=== PATIENT | female | born 1945 | race Caucasian/White ===

== ENCOUNTER 2017-05-07 00:57 | Observation (INO) | payer MEDICARE, BC ==
[2017-05-07] MEDS ORDERED: ceFAZolin 2 GM PREMIX (*) 2 GM/50 ML BAG IVPB ONE ×2 (01:50→13:01)
[2017-05-07] MEDS ORDERED: Metoprolol Tartrate IV* 1 MG/ML 5 ML VIAL IV ONE (03:02)
[2017-05-07 03:10] LABS: ABS Basophils 0.1 10^3/ul (0-0.2); ABS Eosinophils 0.1 10^3/ul (0-0.6); ABS Lymphocytes 1.9 10^3/ul (1.0-4.8); ABS Monocytes 0.5 10^3/ul (0-0.8); ABS Neutrophils 10.1 10^3/ul (1.5-7.7); ABS Nucleated RBC 0.01 10^3/ul; Eosinophil % 0.5 % (0-6); Hematocrit 45 % (35-47); Hemoglobin 15.2 g/dl (12.0-16.0); Lymphocyte % 15.3 % (25-47); Mean Corpuscular HGB Conc 34 g/dl (31-36); Mean Corpuscular Hemoglobin 33 pg (27-31); Mean Corpuscular Volume 99 fL (80-97); Mean Platelet Volume 8 um3 (7.4-10.4); Nucleated Red Blood Cells % 0; Platelet Count 200 10^3/ul (150-450); Red Blood Count 4.56 10^6/ul (4.0-5.4); Red Cell Distribution Width 14 % (10.5-15); White Blood Count 12.7 10^3/ul (3.5-10.8)
[2017-05-07 03:16] LABS: INR 0.96 (0.89-1.11)
[2017-05-07 03:24] LABS: EGFR Non-African American 61.1 (>60)
[2017-05-07] MEDS ORDERED: Senna TAB PO PRN (04:29)
[2017-05-07] MEDS ORDERED: Ondansetron INJ* 2 MG/ML VIAL IV PRN (04:29)
[2017-05-07] MEDS ORDERED: Docusate CAP* 100 MG PO PRN (04:29)
[2017-05-07] MEDS ORDERED: Morphine INJ* 2 MG/ML 1 ML SYRINGE (TWO MG - NEW SYRINGE VERSION) IV PRN (04:29)
[2017-05-07] MEDS ORDERED: Magnesium Sulfate 2 GM IV* 2 GM/50 ML BAG IVPB ONE (04:36)
[2017-05-07] MEDS ORDERED: Thiamine IV* 100 MG/ML 2 ML VIAL IM ONE (04:37)
[2017-05-07] MEDS ORDERED: Metoprolol Tartrate IV* 1 MG/ML 5 ML VIAL IV PRN (04:49)
--- NOTE | 2017-05-07 07:55 | ED ---
[place], scribed for Jonathon Phillip MD on 05/07/17 at 0142 . Adult Trauma - HPI Summary HPI Summary: This patient is a 71 year old F BIBA to [facility] s/p fall since [employer]. Patient drank a bottle of wine and fell down her stairs, cutting her arm open. Patient denies neck pain, head pain, abd pain, cp, sob, and LOC. Patient is not on blood thinners. - History of Current Complaint Chief Complaint: EDGeneral Stated Complaint: RT ARM LAC Time Seen by Provider: 05/07/17 01:22 Hx Obtained From: Patient Mechanism of Injury: Fall Onset/Duration: Still Present Pain Intensity: 0 Pain Scale Used: 0-10 Numeric Location: Extremities - right arm Associated Signs & Symptoms: Positive: Negative - neck pain, head pain, abd pain , cp, sob, and LOC - Allergy/Home Medications Allergies/Adverse Reactions: Allergies Allergy/AdvReac Type Severity Reaction Status Date / Time No Known Allergies Allergy Verified 05/07/17 01:26 Home Medications: Home Medications Atenolol TAB* 50 mg PO DAILY 05/07/17 [History Confirmed 05/07/17] Pravastatin Sodium 80 mg PO DAILY 05/07/17 [History Confirmed 05/07/17] PMH/Surg Hx/FS Hx/Imm Hx Previously Healthy: No Endocrine/Hematology History: Denies: Hx Diabetes Cardiovascular History: Reports: Hx Hypertension - Immunization History Date of Influenza Vaccine: 03/2017 Infectious Disease History: Unable to Obtain/Confirm Infectious Disease History: Denies: Traveled Outside the [place] in Last 30 Days - Family History Known Family History: Negative: Diabetes - Social History Alcohol Use: Daily Alcohol Amount: ETOH intoxication this Substance Use Type: Reports: None Smoking Status (MU): Never Smoked Tobacco Review of Systems Negative: Chest Pain Negative: Shortness Of Breath Musculoskeletal: Negative - neck and head pain Positive: Other - gash on right forearm Neurological: Negative - LOC All Other Systems Reviewed And Are Negative: Yes Physical Exam - Summary Physical Exam Summary: Appearance: Well appearing, no pain distress, Dried blood on hands and legs Skin: warm, dry, reflects adequate perfusion Head/face: normal, No outward evidence of trauma to scalp, No dental injury Eyes: EOMI, YASMANI ENT: normal Neck: supple, non-tender Respiratory: CTA, breath sounds present Cardiovascular: RRR, pulses symmetrical, no murmur Abdomen: non-tender, soft, No ecchymosis on back Bowel: present Musculoskeletal: normal, strength/ROM intact Extremities: 4 cm circular hematoma on her right lateral lower leg, Ecchymosis without hematoma left medial lower leg, No hip tenderness through full rom, Upper extremities move without tenderness, Full extension of digits and wrist, Laceration on right forearm widest is 5cm x 10cm x to exposed muscle Neuro: sensory motor intact, A&Ox3 Neurologically normal, speech clear, cranial nerves intact, mentation intact Triage Information Reviewed: Yes Vital Signs On Initial Exam: Initial Vitals Temp Pulse Resp BP Pulse Ox 97.3 F 94 16 126/66 97 05/07/17 01:05 05/07/17 01:05 05/07/17 01:05 05/07/17 01:05 05/07/17 01:05 Vital Signs Reviewed: Yes Procedures - Laceration/Wound Repair 1 Location: upper extremity - right forearm Length, Depth and Shape: 5cm x 10cm x to muscle Laceration/Wound Explored: clean, Other - Patients wound on right forearm was irrigated with 1L of pressurized saline and the wound was approximated loosely. It was then wrapped with moistened kerlix gauze and coband pressure wrapped. Diagnostics - Vital Signs Vital Signs Temp Pulse Resp BP Pulse Ox 05/07/17 01:27 96 94 05/07/17 01:26 114/69 05/07/17 01:05 97.3 F 94 16 126/66 97 - Laboratory Lab Results: Lab Results 05/07/17 05/07/17 05/07/17 Range/Units 02:50 02:50 02:50 WBC 12.7 H (3.5-10.8) 10^3/ul RBC 4.56 (4.0-5.4) 10^6/ul Hgb 15.2 (12.0-16.0) g/dl Hct 45 (35-47) % MCV 99 H (80-97) fL MCH 33 H (27-31) pg MCHC 34 (31-36) g/dl RDW 14 (10.5-15) % Plt Count 200 (150-450) 10^3/ul MPV 8 (7.4-10.4) um3 Neut % (Auto) 79.6 (38-83) % Lymph % (Auto) 15.3 L (25-47) % Campbell % (Auto) 4.1 (1-9) % Eos % (Auto) 0.5 (0-6) % Baso % (Auto) 0.5 (0-2) % Absolute Neuts (auto) 10.1 H (1.5-7.7) 10^3/ul Absolute Lymphs (auto) 1.9 (1.0-4.8) 10^3/ul Absolute Monos (auto) 0.5 (0-0.8) 10^3/ul Absolute Eos (auto) 0.1 (0-0.6) 10^3/ul Absolute Basos (auto) 0.1 (0-0.2) 10^3/ul Absolute Nucleated RBC 0.01 10^3/ul Nucleated RBC % 0 INR (Anticoag Therapy) 0.96 (0.89-1.11) Sodium 137 (133-145) mmol/L Potassium TNP Chloride 102 (101-111) mmol/L Carbon Dioxide 25 (22-32) mmol/L Anion Gap 10 (2-11) mmol/L BUN 15 (6-24) mg/dL Creatinine 0.91 (0.51-0.95) mg/dL Est GFR ( Amer) 78.6 (>60) Est GFR (Non-Af Amer) 61.1 (>60) BUN/Creatinine Ratio 16.5 (8-20) Glucose 116 H (70-100) mg/dL Calcium 9.4 (8.6-10.3) mg/dL Magnesium 1.8 L (1.9-2.7) mg/dL Total Bilirubin 0.60 (0.2-1.0) mg/dL AST TNP ALT 27 (7-52) U/L Alkaline Phosphatase 58 (34-104) U/L Troponin I (<0.04) ng/mL Total Protein 7.4 (6.4-8.9) g/dL Albumin 4.4 (3.2-5.2) g/dL Globulin 3.0 (2-4) g/dL Albumin/Globulin Ratio 1.5 (1-3) Serum Alcohol 234 H (<10) mg/dL 05/07/17 Range/Units 03:34 WBC (3.5-10.8) 10^3/ul RBC (4.0-5.4) 10^6/ul Hgb (12.0-16.0) g/dl Hct (35-47) % MCV (80-97) fL MCH (27-31) pg MCHC (31-36) g/dl RDW (10.5-15) % Plt Count (150-450) 10^3/ul MPV (7.4-10.4) um3 Neut % (Auto) (38-83) % Lymph % (Auto) (25-47) % Campbell % (Auto) (1-9) % Eos % (Auto) (0-6) % Baso % (Auto) (0-2) % Absolute Neuts (auto) (1.5-7.7) 10^3/ul Absolute Lymphs (auto) (1.0-4.8) 10^3/ul Absolute Monos (auto) (0-0.8) 10^3/ul Absolute Eos (auto) (0-0.6) 10^3/ul Absolute Basos (auto) (0-0.2) 10^3/ul Absolute Nucleated RBC 10^3/ul Nucleated RBC % INR (Anticoag Therapy) (0.89-1.11) Sodium (133-145) mmol/L Potassium 3.8 Chloride (101-111) mmol/L Carbon Dioxide (22-32) mmol/L Anion Gap (2-11) mmol/L BUN (6-24) mg/dL Creatinine (0.51-0.95) mg/dL Est GFR ( Amer) (>60) Est GFR (Non-Af Amer) (>60) BUN/Creatinine Ratio (8-20) Glucose (70-100) mg/dL Calcium (8.6-10.3) mg/dL Magnesium (1.9-2.7) mg/dL Total Bilirubin (0.2-1.0) mg/dL AST 38 ALT (7-52) U/L Alkaline Phosphatase (34-104) U/L Troponin I 0.00 (<0.04) ng/mL Total Protein (6.4-8.9) g/dL Albumin (3.2-5.2) g/dL Globulin (2-4) g/dL Albumin/Globulin Ratio (1-3) Serum Alcohol (<10) mg/dL Result Diagrams: 05/07/17 02:50 05/07/17 03:34 Lab Statement: Any lab studies that have been ordered have been reviewed, and results considered in the medical decision making process. - Radiology forearm xray Radiology Interpretation Completed By: ED Physician - soft tissue defect on mid forearm, no fracture CXR Radiology Interpretation Completed By: ED Physician - no acute disease - CT CT Head CT Interpretation Completed By: Radiologist - involutional changes with mild to moderate ventriculomegaly ED physician has reviewed this radiology report and agrees. CT C-spine CT Interpretation Completed By: Radiologist - negative for cervical spine fracture or malalignment ED physician has reviewed this radiology report and agrees. - EKG 02:44 Cardiac Rate: NL EKG Rhythm: Atrial Fibrillation - [address] Segment: Non-Specific EKG Interpretation: Normal axis, low voltage Re-Evaluation - Re-Evaluation First Eval Change: Improved - lac dressed and sobering. Lopressor for Afib Adult Trauma Course/Dx - Course Course Of Treatment: Pt with extensive injury to R forearm (partial degloving). Ortho c/s -- will take to OR. Found to have new onset afib. Rate ~100. Lopressor here. No other significant injury. No abd pain. Hematoma in leg. Admit for further, OR when able. Td is up to date. Ancef given for wound. - Diagnoses Provider Diagnoses: Multiple contusions, New onset a-fib, Alcohol intoxication, complex forearm laceration - Physician Notifications Discussed Care Of Patient With: Cris Mak Time Discussed With Above Provider: 02:12 Instructed by Provider To: Other - We discussed patient care with Dr. Mak and they recommended cleaning the wound and she will be down at 0400 to take the patient to the OR. - Critical Care Time Critical Care Time: 30-74 min - CCT is EXCLUSIVE of separately billable procedures Discharge - Discharge Plan Condition: Stable Disposition: ADMITTED TO [facility] Consult Consult: 03:07: Discussed patient care with Dr. Al, hospitalist. She agreed to admit the patient. The documentation as recorded by the [place] accurately reflects the service I personally performed and the decisions made by , Jonathon Phillip MD.
[2017-05-07] MEDS: Multivitamins/Minerals TAB PO SCH (08:00)
[2017-05-07] MEDS: Folic Acid TAB* 1 MG PO SCH (08:01)
[2017-05-07] MEDS: Thiamine TAB* 100 MG TAB PO SCH (08:01)
--- NOTE | 2017-05-07 08:12 | RAD ---
Indication: Preop chest. Comparison is made with previous exam dated November 10, 2007. 2 views of the chest including dual energy PA views demonstrate no mediastinal shift. Heart is of normal size and configuration. Lung mariano are clear. IMPRESSION: No active cardiopulmonary disease is noted.
--- NOTE | 2017-05-07 08:13 | RAD ---
Indication: Right arm injury. 2 views of the right forearm demonstrates large laceration in the soft tissues. No fracture is noted. IMPRESSION: Soft tissue defect consistent with laceration. No fracture is noted.
--- NOTE | 2017-05-07 08:23 | RAD ---
indication: Fall. + EtOH. COMPARISON: None A CT scan of the brain and c-spine was performed without intravenous contrast enhancement. Contiguous axial sections were obtained from the lung apices through the vertex. BRAIN: The ventricles, cisterns and sulci exhibit symmetrical involutional changes. There is mild periventricular and subcortical white matter hypoattenuation most consistent with chronic microvascular disease. No significant focal abnormality or mass effect is seen. The fitzpatrick-white differentiation is adequately maintained. There is no evidence for intracranial hemorrhage. No significant bony abnormality is present. The mastoid air cells are appropriately aerated. The visualized paranasal sinuses are clear. C-SPINE: Degenerative changes of the cervical spine include loss of intervertebral disc height and mild marginal osteophyte formation. Mild uncovertebral hypertrophy is seen at the mid-level and lower cervical spine on the coronal plane images. On the sagittal view images the vertebral bodies and facet joints are appropriately aligned. There is no acute fracture or dislocation. There is no hyperdense material in the cervical canal to indicate hemorrhage. The visualized musculature and soft tissues are normal. There is no gross lymphadenopathy visualized. The visualized portion of the lung apices are clear. IMPRESSION: 1. No calvarial fracture or acute intracranial hemorrhage. 2. Mild multilevel degenerative changes without acute fracture or dislocation of the cervical spine..
[2017-05-07 08:44] LABS: Urine Appearance Clear; Urine Blood Negative (Negative); Urine Color Yellow; Urine Ketones Negative (Negative); Urine Protein Negative (Negative); Urine Specific Gravity 1.011 (1.010-1.030); Urine Urobilinogen Negative (Negative)
[2017-05-07] MEDS ORDERED: Perflutren Lipid Microsphere* 3 ML VIAL ONE (09:40)
--- NOTE | 2017-05-07 10:13 | HP ---
CC: Bruce Foley; Cris Mak MD * HISTORY AND PHYSICAL: DATE OF ADMISSION: 05/07/17 TIME OF EVALUATION: 0400 PRIMARY CARE PHYSICIAN: Bruce Foley. ORTHOPEDIC SURGEON: Cris Mak MD CHIEF COMPLAINT: Fall. HISTORY OF PRESENT ILLNESS: This is a 71-year-old female with past medical history of hypertension, hyperlipidemia, who fell down a stairs and suffered a significant laceration to her right upper extremity. Patient was also noted to be in new onset atrial fibrillation. Patient states she was in her usual state of health when fell down the stairs and something caught on her arms, suffered significant injury, and EMS was called. Ortho was notified. They were going to take her to the OR this morning when they noticed that she was in atrial fibrillation in the low 100s. Patient denies ever having any issues with atrial fibrillation in the past. No palpations, no chest pain. She states she occasionally has wheezing episode with her seasonal allergies. She is not typically very physically active. She does snore at night. She denies any recent URI illness. No nausea, vomiting, diarrhea. No headache, no abdominal pain, no urinary symptoms. She does admit to drinking on average a bottle of wine a day give or take, which she also was drinking this evening as well. Otherwise, remaining review of systems negative. In the emergency room, the patient had labs, imaging. She was given Lopressor 5 mg and Keflex 2 g and referred to the hospitalist service for further evaluation. PAST MEDICAL HISTORY: 1. Hypertension. 2. Hyperlipidemia. 3. Seasonal allergies. 4. Alcohol use. MEDICATIONS: 1. Pravastatin 80 mg p.o. daily. 2. Atenolol 50 mg daily. ALLERGIES: No known drug allergies. FAMILY HISTORY: Mother at age 98. Father at age 76 related to complications from stroke. SOCIAL HISTORY: Patient lives at home with her , who is her healthcare proxy. She is a remote smoker more than 40 years ago. She states she drinks about a bottle of wine per day give or take. No illicit drug use. Code status is full code. REVIEW OF SYSTEMS: A 14-point review of systems reviewed. Pertinent positives and negatives as mentioned in the HPI, otherwise negative. PHYSICAL EXAMINATION GENERAL: In no acute distress, resting comfortably. VITAL SIGNS: Temp 97.3, pulse rate 92, respiratory rate 16, oxygen saturation 96 % on room air, blood pressure 103/62. HEENT: Head normocephalic. Pupils are equal and reactive, anicteric. Oropharynx: Mucous membranes are moist. NECK: Supple. No lymphadenopathy. RESPIRATORY: Diminished breath sounds. No wheezing, rhonchi, or rales. CARDIAC: Irregularly irregular rate and rhythm. Soft systolic murmur heard throughout. ABDOMEN: Soft, nontender, nondistended. EXTREMITIES: The patient with an Roberto Carlos wrap on the right upper extremity. +2 DPs. NEUROLOGIC: Alert and oriented x3. No focal neurologic deficits. DIAGNOSTIC STUDIES/LAB DATA: White count 12.7, hemoglobin 15.2, hematocrit 45 , platelets 200. INR is 0.96. Sodium 137, potassium is pending, chloride 102, bicarb 25, BUN 15, creatinine 0.91, glucose 116. Alcohol level is 234. Radiographic Data: EKG shows atrial fibrillation with a rate of 99. Head CT, involutional changes with [id number] ventriculomegaly. No hemorrhage or acute infarct. Chest x-ray: No acute pathology. ASSESSMENT: This is a 71-year-old female with past medical history of hypertension, hyperlipidemia with alcohol use, who fell down the stairs, noted to have significant right upper extremity injury, was also found to be in new onset atrial fibrillation. 1. Right upper extremity injury: Assessment and plan: We will keep her n.p.o. Patient has plan to go to the OR today for repair. 2. New onset atrial fibrillation: Assessment: I suspect it is chronic for her. She is asymptomatic. Her heart rate slightly elevated and she is also intoxicated. I suspect this is due to alcohol use and possibly obstructive sleep apnea. Following up on her potassium and magnesium, we will continue metoprolol as needed. We will check an echo and trend her troponins. If all that is unremarkable, patient should proceed to the OR for repair. As mentioned, she is asymptomatic. In regards to starting on anticoagulation, hesitate to do that in the setting of her drinking and her recent fall, I suspect that keeping her rate controlled with a baby aspirin is more appropriate, which should be initiated when she is out of the OR. 3. Hypertension: Blood pressures are soft, we are giving her metoprolol for rate control. 4. Hyperlipidemia: We will hold her pravastatin for now. 5. FEN: NPO with IV fluids. 6. DVT prophylaxis: Placed the patient on SCDs as she is planning to go to the OR today. 7. Code status: Full code. PATIENT TIME: Greater than 60 minutes were spent doing the history and physical , more than half the time spent in direct patient contact. [id number]/CPS #: [id number] MTDD
--- NOTE | 2017-05-07 11:01 | ECHO ---
Patient: VIKKI MILLER [facility] Rec#: [id number] : 1945 Date: 05/07/2017 Age: 71y Height: 157.5 cm / 62.0 in Weight: 79.8 kg / 175.9 lbs Sex: F BSA: 1.8 Room#: [facility] Admit Date#: 05/07/2017 Type: Inpatient Referring: Teresa Al Reading: Brando Griffin DO Research Mechanic: Ana Rosa Hankins RN RDCS CC: Bruce Foley MD Transthoracic Echocardiogram Indication: Atrial fibrillation BP: 92/61 HR: 93 Rhythm: A-Fib Findings History: HTN, HLD, ETOH use, obesity Technical Comments: The study is technically limited due to poor acoustic windows. The study is technically limited due to patient body habitus. The study is technically limited due to the patient's smoking history. Left Ventricle: The left ventricular chamber size is normal. Mild concentric left ventricular hypertrophy is observed. Global left ventricular wall motion and contractility are within normal limits. There is normal left ventricular systolic function. The estimated ejection fraction is greater than 65%. The assessment of diastolic function is non-diagnostic. Left Atrium: The left atrium is moderately dilated. Right Ventricle: The right ventricle is mildly dilated. The right ventricular global systolic function is normal. Right Atrium: The right atrium is mildly dilated. Aortic Valve: The aortic valve structure is not well visualized. The aortic valve leaflets are mildly thickened. There is no evidence of aortic regurgitation. There is no evidence of aortic stenosis. Mitral Valve: The mitral valve leaflets are mildly thickened. There is trace to mild mitral regurgitation. There is no evidence of mitral stenosis. Tricuspid Valve: The tricuspid valve leaflets are normal. There is trace to mild tricuspid regurgitation. There is evidence of borderline pulmonary hypertension. There is no tricuspid stenosis. Pulmonic Valve: The pulmonic valve structure is not well visualized. There is a trace pulmonic regurgitation. There is no pulmonic stenosis. Pericardium: There is no significant pericardial effusion. A pericardial fat pad is visualized. Aorta: There is no dilatation of the ascending aorta. The aortic arch is not well visualized. The aortic root is normal in size. Pulmonary Artery: The main pulmonary artery is not well visualized. Venous: The venous system is not well visualized. The inferior vena cava is not visualized. Contrast: Definity was used to optimize study. A total of 3 ml of diluted Definity was given IV. Conclusions Patient in atrial fibrillation at time of study. The left ventricular chamber size is normal. Mild concentric left ventricular hypertrophy is observed. There is normal left ventricular systolic function. The estimated ejection fraction is 65-70%. The left atrium is moderately dilated. The right ventricle is mildly dilated. The right ventricular global systolic function is normal. No significant valvular abnormalities noted There is evidence of borderline pulmonary hypertension. Definity was used to optimize study. No prior studies available for comparison at time of interpretation Measurements Name Value Normal Range RAd ISD 4CH 5.4 cm (3.4 - 4.9) RA (A4C)W 3.8 cm (2.9 - 4.6) IVSd (2D) 1.2 cm (0.6 - 1) LVPWd (2D) 1.2 cm (0.6 - 1) LVIDd (2D) 3.6 cm (3.6 - 5.4) Aortic Annulus 1.9 cm (1.4 - 2.6) Ao root diameter (2D) 2.4 cm (2.1 - 3.5) Ascending Ao 3 cm (2.1 - 3.4) LA dimension (AP) 2D 4.6 cm (2.3 - 3.8) LAd ISD 4CH 5.3 cm (2.9 - 5.3) LA ISD 4CH W 5.1 cm (2.5 - 4.5) Name Value Normal Range LA ESV SP 4CH (A/L) 76 ml - LA ESV SP 2CH (A/L) 33 ml - LA ESV BP (A/L) 56 ml - LA ESV BP (A/L) index 31 ml/m2 - LA ESV SP 4CH (MOD) 74 ml - LA ESV SP 2CH (MOD) 31 ml - Name Value Normal Range MV E-wave Vmax 0.88 m/sec - MV deceleration time 150 msec - LV septal e' Vmax 0.07 m/sec - LV lateral e' Vmax 0.1 m/sec - LV E:e' septal ratio 12.6 ratio - LV E:e' lateral ratio 8.8 ratio - Name Value Normal Range AV Vmax 1.5 m/sec - AV VTI 24 cm - AV peak gradient 8.7 mmHg - AV mean gradient 5.6 mmHg - LVOT Vmax 0.9 m/sec - LVOT VTI 14.6 cm - LVOT peak gradient 3.2 mmHg - LVOT mean gradient 1.9 mmHg - Name Value Normal Range TR Vmax 2.6 m/sec - TR peak gradient 27 mmHg - RAP 8 mmHg - RVSP 35 mmHg - Name Value Normal Range PV Vmax 1.1 m/sec -
--- NOTE | 2017-05-07 11:36 | CONS ---
ORTHOPEDIC CONSULT NOTE: DATE OF CONSULT: 05/07/17 LOCATION: This is an orthopedic consult in the emergency room. CHIEF COMPLAINT: Right forearm laceration with pain. HISTORY OF PRESENT ILLNESS: Ms. Russo is a 71-year-old female who reports she fell down a staircase late on the evening of 05/06/17 and must have caught her arm on the banister. She was intoxicated at the time. She immediately noted a large open wound around her right forearm. She had 4/10 sharp pain with some bleeding. She denies any numbness or weakness in the wrist or hand. Denies any injury to the side. She is right-hand dominant. She was brought to [facility] for further evaluation. I was consulted for a formal washout and closure of the wound due to its deep nature and length of over 10 cm. The patient had some labs and EKG as a preliminary step, which showed new onset atrial fibrillation. Dr. Al of the hospitalist group has admitted her and is currently working to control her heart rate and optimize her before I take her to surgery for I and D and closure of the wound. PAST MEDICAL HISTORY: Hypertension, hypercholesterolemia, endometriosis, diverticulitis. PAST SURGICAL HISTORY: Ileostomy, colostomy, rectovaginal fistula surgery, multiple endometrial ablation surgeries. CURRENT MEDICATIONS: 1. Atenolol. 2. Pravastatin. Doses to be determined. ALLERGIES: No known drug allergies. FAMILY HISTORY: Maternal breast cancer. SOCIAL HISTORY: The patient is retired, lives with her . She has 1 bottle of wine per day, perhaps more she reports. No tobacco or recreational drug use. Right-hand dominant, usually an independent ambulator. REVIEW OF SYSTEMS: Positive for recent fall and intoxication. Positive for right arm pain. Negative for numbness or weakness in the right upper extremity. Negative for fevers, chills, chest pain, shortness of breath, nausea , vomiting, headache, or dizziness. Otherwise, the patient reports review of systems is negative or not relevant. PHYSICAL EXAM: Vitals: Temperature 97.8, heart rate 94, blood pressure 105/75 , respiratory rate 16, oxygen saturation 94% on room air. General: The patient is a well-nourished female, in no apparent distress, alert and oriented x3, pleasant mood and appropriate affect. Gait is not assessed. HEENT: Atraumatic, normocephalic. Pupils equal and reactive to light. Chest: Unlabored breathing. Right upper Extremity: The patient's laceration is along the dorsal forearm curving in a transverse fashion. This is at least 13 cm in length and 4 cm in width. There is visible muscle. Minimal bleeding. One of the wound edges does have a 0.5 cm thickness of black discoloration or wound edge necrosis. Distally, she demonstrates thumbs-up, A-OK and cross-finger sign. She has 2+ palpable radial pulse. She reports full sensation to light touch in all nerve distributions including median, ulnar, and radial nerve. RADIOGRAPHS: Multiple views of the right forearm showed no obvious fracture. The soft tissue laceration is visible on the x-ray. LABORATORY DATA: Labs from today show white blood cells 12.7, hematocrit 45, platelets 200, no left shift. INR 0.96. Sodium 137, potassium 3.8, chloride 102, BUN and creatinine 15 and 0.91. Serum alcohol 234. STUDIES: Recent EKG from this a.m. shows atrial fibrillation, heart rate anywhere from 95 to 110. ASSESSMENT AND PLAN: Ms. Russo is a 71-year-old right-hand dominant female who had a fall last evening while intoxicated. She has a deep and lengthy wound along the dorsal forearm with some wound edge necrosis. I do agree this ought to be formally washed, debrided, and closed in the operating room. Obviously, we want the patient to be medically optimized. She is found to be in new onset atrial fibrillation and is being worked up by the hospitalist team. Her electrolytes are within normal limits. She will have an echo this morning. We will keep her n.p.o. and our plan will be for a formal washout and closure later this afternoon if she is medically stable per the hospitalist group. I have dressed her right forearm with Xeroform and dry sterile dressings. She will continue to have Ancef and is up-to-date with tetanus. The patient and I discussed the risks of surgery including, but not limited to bleeding, infection, damage to nearby structures, wound healing problems, need for further surgery, stroke, heart attack, blood clot, and . She wishes to proceed. Specific to this patient and her injury, we discussed the risk of infection due to the open wound as well as wound healing problems due to the wound edge necrosis already visible. She understands and wishes to proceed. Thank you for this orthopedic consultation. I will follow the patient today. [id number]/[facility] #: [id number] SHYLA
--- NOTE | 2017-05-07 12:03 | PN ---
Hospitalist Progress Note Echo is unremarkable in terms of any significant valvular abnormalities. Will continue prn metoprolol for sustained RVR. Do not think the patient needs any additional work-up prior to OR.
--- NOTE | 2017-05-07 13:21 | PN ---
Subjective Date of Service: 05/07/17 Interval History: Patient seen this morning. Denies pain at this time. States it is not unusual for her to drink a bottle of wine in one day. Denies any history of EtOH withdrawal or AFib. Family History: Unchanged from Admission Social History: Unchanged from Admission Past Medical History: Unchanged from Admission Objective Active Medications: Docusate Sodium (Colace Cap*) 100 mg PO BID PRN Folic Acid (Folvite Tab*) 1 mg PO DAILY [facility] Metoprolol Tartrate (Lopressor Iv*) 5 mg IV Q6H PRN Morphine Sulfate (Morphine Inj (Syringe)*) 2 mg IV Q4H PRN Multivitamins/Minerals (Theragran/Minerals Tab*) 1 tab PO DAILY [facility] Ondansetron HCl (Zofran Inj*) 4 mg IV Q4H PRN Senna (Senokot Tab*) 1 tab PO BID PRN Thiamine HCl (Vitamin B-1 Tab*) 100 mg PO DAILY [facility] Vital Signs 05/07/17 05/07/17 05/07/17 04:32 04:33 05:00 Temperature Pulse Rate 90 94 Respiratory 18 22 Rate Blood Pressure 109/66 105/75 (mmHg) O2 Sat by Pulse 95 94 Oximetry 05/07/17 05/07/17 05/07/17 05:10 06:00 06:30 Temperature 97.8 F Pulse Rate 95 82 86 Respiratory 16 24 23 Rate Blood Pressure 105/75 98/53 92/61 (mmHg) O2 Sat by Pulse 94 92 92 Oximetry 05/07/17 07:01 Temperature 98.0 F Pulse Rate 101 Respiratory 20 Rate Blood Pressure 103/63 (mmHg) O2 Sat by Pulse 100 Oximetry Oxygen Devices in Use Now: None Appearance: Elderly, F, laying in bed in NAD Eyes: No Scleral Icterus Ears/Nose/Mouth/Throat: Mucous Membranes Moist Neck: NL Appearance and Movements; NL JVP Respiratory: Symmetrical Chest Expansion and Respiratory Effort, Clear to Auscultation Cardiovascular: - - IRIR, normal rate Abdominal: NL Sounds; No Tenderness; No Distention Lymphatic: No Cervical Adenopathy Extremities: - - RUE with dressing in place, did not take down Skin: No Rash or Ulcers Neurological: Alert and Oriented x 3 Result Diagrams: 05/07/17 02:50 05/07/17 03:34 Additional Lab and Data: . Assess/Plan/Problems-Billing Assessment: RUE laceration 2/2 fall while intoxicated, new onset AFib in a 71 yo F with hx of HTN, HLD, EtOH abuse - Patient Problems (1) Laceration Current Visit: Yes Comment: RUE laceration sustained while falling while intoxicated. Appreciate Ortho assistance, plan for OR later today. (2) Afib Current Visit: Yes Comment: Echo with no valvular abnormalities. May be related to EtOH use, may be chronic. PRN Metoprolol for sustained tachycardia. Can resume home Atenolol once BPs are a bit higher. Will hold on AC at this time. (3) HTN (hypertension) Current Visit: Yes Comment: Holding home atenolol (4) HLD (hyperlipidemia) Current Visit: Yes Comment: Can resume statin tomorrow (5) DVT prophylaxis Current Visit: Yes Comment: SCDs
[2017-05-07] MEDS ORDERED: Bacitracin IV* 50,000 UNITS INJ ONE (13:34)
[2017-05-07] MEDS ORDERED: Bupivacaine 0.5% SDV PF* 10-30ML VIAL ONE (13:36)
[2017-05-07] MEDS ORDERED: fentaNYL* 50 MCG/ML 2 ML VIAL (100 MCG VIAL) IV SLOW PU PRN (13:39)
[2017-05-07] MEDS ORDERED: fentaNYL* 50 MCG/ML 2 ML VIAL (100 MCG VIAL) ONE ×2 (13:42→14:32)
[2017-05-07] MEDS ORDERED: Ondansetron INJ* 2 MG/ML VIAL ONE (14:17)
[2017-05-07] MEDS ORDERED: Ondansetron INJ* 2 MG/ML VIAL IV ONE (14:18)
[2017-05-07] MEDS ORDERED: Midazolam* 1 MG/ML 5 ML VIAL (5 MG) ONE (14:25)
[2017-05-07] MEDS ORDERED: Metoprolol Tartrate IV* 1 MG/ML 5 ML VIAL ONE (14:46)
[2017-05-07] MEDS ORDERED: Propofol* 10 MG/ML 20 ML BTL IV PUSH ONE (14:53)
[2017-05-07] MEDS ORDERED: Dexamethasone IV* 4 MG/ML 1 ML (4 MG) ONE (14:53)
[2017-05-07] MEDS ORDERED: Ketorolac INJ* 30 MG/ML 1 ML VIAL ONE (14:53)
[2017-05-07] MEDS ORDERED: Acetaminophen TAB* 325 MG PO PRN (15:13)
[2017-05-07] MEDS ORDERED: oxyCODONE TAB* 5 MG TAB PO PRN (15:13)
[2017-05-07] MEDS ORDERED: HYDROmorphone INJ* 1 MG/ML CARPUJECT SYRINGE IV PRN (15:13)
[2017-05-07] MEDS ORDERED: DiMENhydriNATE IV* 50 MG/ML VIAL IV PUSH PRN (15:13)
[2017-05-07] MEDS: ceFAZolin 1 GM* X 3 DOSES POST-OP Q8H IVPB SCH ×2 (22:45)
--- NOTE | 2017-05-08 05:37 | OP ---
DATE OF OPERATION: 05/07/17 - ROOM #450 DATE OF : 47 SURGEON: Cris Mak MD MANUFACTURING QUALITY INSPECTOR: ROBER Gil. Ms. Montoya did help throughout the procedure with preparation of the arm, wound retraction and wound closure. ANESTHESIOLOGIST: Dr. Sandoval. ANESTHESIA: General. PRE-OP DIAGNOSIS: Open wound and degloving injury of the right forearm. POST-OP DIAGNOSIS: Open wound and degloving injury of the right forearm. OPERATIVE PROCEDURE: Irrigation and debridement with primary closure of right forearm open wound, wound measuring 13 x 5 cm in length and width. ESTIMATED BLOOD LOSS: Less than 25 cc. COMPLICATIONS: None. SPECIMENS: None. BRIEF HISTORY/INDICATION: Ms. Russo is a 71-year-old [id number] female who was intoxicated and fell last evening down some steps. She sustained an open wound on her right forearm. She was brought to [facility]. The emergency department deemed the wound inappropriate for washout in the emergency room. I was called for irrigation and debridement of the open wound and wound closure. The patient had some preliminary labs and EKG performed while preparing her for surgery and was found to have atrial fibrillation, which was not previously diagnosed. Surgery was delayed, while an echo was obtained and the hospitalist did admit her for new onset atrial fibrillation. Based on the echo, they thought she was optimized for surgery later in the afternoon. The patient understood the risk of surgery included but were not limited to bleeding, infection, damage to nearby structures, continued pain, need for further surgery, stroke, heart attack, blood clot and . She wished to proceed. INTRAOPERATIVE FINDINGS: Intraoperatively, she had a 13 x 5 cm wound along the dorsal forearm of her right upper extremity. There was significant degloving distally underneath. There was exposed superficial nerve. There was no significant bleeding. Muscle fascia was largely intact. There was no gross dirt in the wound. There was a significant amount of wound edge necrosis, which was debrided. DESCRIPTION OF PROCEDURE: Ms. Russo was identified in the preanesthesia unit. Her right upper extremity was marked as the correct operative site. She was taken to the operating room and placed under general anesthesia. The right upper extremity was prepped and draped in the usual sterile fashion. Preop time -out was made to correctly identify the patient's side and site. Appropriate perioperative antibiotics were given within 1 hour of incision. A tourniquet was not inflated for this procedure. Three liters of sterile saline with bacitracin were used to irrigate the wound using bulb syringe in a gentle manner. The wound was measured at 13 x 5 cm with a large amount of degloving distally. There was no visible gross dirt in the wound. After the irrigation was performed, the wound edges which had become necrotic were carefully debrided using a 15 blade. This was no more than 2 mm along the distal edge of the wound, 0 and 2-0 Vicryls were used to close the incision in a layered fashion. Running 3-0 nylon suture was used to close the skin. The skin was closed carefully in layers to avoid any spaces; 0.5% Marcaine was used for local anesthesia. Sterile Xeroform, 4x4s and Webril were used to cover the incision. The patient's anesthesia was reversed without difficulty. She was taken to the PACU in stable condition. Intended weightbearing will be weightbearing as tolerated. Intention will be for antibiotics over the next 7 days. [id number]/[facility] #: [id number] [facility]
[2017-05-08] MEDS: ceFAZolin 1 GM* X 3 DOSES POST-OP Q8H IVPB SCH ×2 (06:01)
[2017-05-08] MEDS ORDERED: Acetaminophen TAB* 325 MG PO PRN (06:21)
[2017-05-08 07:12] LABS: ABS Basophils 0 10^3/ul (0-0.2); ABS Eosinophils 0 10^3/ul (0-0.6); ABS Lymphocytes 1.2 10^3/ul (1.0-4.8); ABS Monocytes 0.2 10^3/ul (0-0.8); ABS Neutrophils 6.5 10^3/ul (1.5-7.7); ABS Nucleated RBC 0 10^3/ul; Eosinophil % 0 % (0-6); Hematocrit 39 % (35-47); Hemoglobin 13.6 g/dl (12.0-16.0); Lymphocyte % 14.7 % (25-47); Mean Corpuscular HGB Conc 35 g/dl (31-36); Mean Corpuscular Hemoglobin 34 pg (27-31); Mean Corpuscular Volume 98 fL (80-97); Mean Platelet Volume 8 um3 (7.4-10.4); Nucleated Red Blood Cells % 0; Platelet Count 164 10^3/ul (150-450); Red Blood Count 3.99 10^6/ul (4.0-5.4); Red Cell Distribution Width 14 % (10.5-15)
--- NOTE | 2017-05-08 07:43 | PN ---
Progress Note - Progress Note Date of Service: 05/08/17 SOAP: Subjective: Pt. is alert, denies pain or numbness RUE. Objective: RUE - dressing c/d/i. nvi with full motion wrist and fingers. 2+rad pulse. Vital Signs: Temp Pulse Resp BP Pulse Ox 98.1 F 79 14 148/74 96 05/08/17 07:32 05/08/17 07:32 05/08/17 07:32 05/08/17 07:32 05/08/17 07:32 Laboratory Results - last 24 hr 05/07/17 05/07/17 05/08/17 08:18 08:35 06:48 WBC 8.0 RBC 3.99 L Hgb 13.6 Hct 39 MCV 98 H MCH 34 H MCHC 35 RDW 14 Plt Count 164 MPV 8 Neut % (Auto) 82.0 Lymph % (Auto) 14.7 L [place] % (Auto) 2.9 Eos % (Auto) 0 Baso % (Auto) 0.4 Absolute Neuts (auto) 6.5 Absolute Lymphs (auto) 1.2 Absolute Monos (auto) 0.2 Absolute Eos (auto) 0 Absolute Basos (auto) 0 Absolute Nucleated RBC 0 Nucleated RBC % 0 Troponin I 0.00 Urine Color Yellow Urine Appearance Clear Urine pH 5.0 Ur Specific [place] 1.011 Urine Protein Negative Urine Ketones Negative Urine Blood Negative Urine Nitrate Negative Urine Bilirubin Negative Urine Urobilinogen Negative Ur Leukocyte Esterase 2+ H Urine WBC (Auto) 1+(6-10/hpf) H Urine RBC (Auto) Trace(0-2/hpf) Ur Squamous Epith Cells Present H Urine Bacteria Absent Urine Glucose Negative Assessment: 71 yo F s/p fall with RUE laceration - s/p I and D RUE lac with primary closure Plan: wbat RUE but limit aggressive use of the arm continue dressing - Dr Mak to remove if patient is d/yenny to home today - follow up friday 05/11 for wound check - call [phone] please give keflex x 7 days ortho to follow
[2017-05-08] MEDS: Thiamine TAB* 100 MG TAB PO SCH (08:32)
[2017-05-08] MEDS: Multivitamins/Minerals TAB PO SCH (08:32)
[2017-05-08] MEDS: Folic Acid TAB* 1 MG PO SCH (08:32)
[2017-05-08] MEDS ORDERED: Atorvastatin* 20 MG TAB PO SCH (09:00)
[2017-05-08 09:09] LABS: EGFR Non-African American 56.8 (>60)
[2017-05-08 09:26] VITALS: BP 136/69
--- NOTE | 2017-05-09 13:34 | DS ---
CC: Dr. Bruce Foley; Dr. Cris Mak DISCHARGE SUMMARY: DATE OF ADMISSION: 05/07/17 DATE OF DISCHARGE: 05/08/17 PRIMARY CARE PROVIDER: Dr. Bruce Foley. ORTHOPEDIST: Dr. Cris Mak. DISCHARGE DIAGNOSES: 1. Alcohol intoxication. 2. Right arm laceration. 3. Newly diagnosed atrial fibrillation. SECONDARY DIAGNOSES: 1. Hypertension. 2. Hyperlipidemia. 3. Seasonal allergies. 4. Alcohol abuse. MEDICATION LIST: 1. Pravastatin 80 mg p.o. daily. 2. Atenolol 50 mg p.o. daily. New Medications: 1. Thiamine 100 mg p.o. daily. 2. Multivitamin 1 tablet p.o. daily. 3. Folic acid 1 mg p.o. daily. 4. Acetaminophen 650 mg p.o. q. 4 hours p.r.n. pain or fever. 5. Cephalexin 500 mg p.o. q.i.d. for 7 days. HOSPITAL COURSE: Ms. Russo is a 71-year-old female with a past medical history as stated above that presented to the emergency room on 05/07 after sustaining a fall with significant laceration to her right upper extremity. In the emergency room, she was also noted to be in atrial fibrillation an d this was a new diagnosis for this patient. For more details about her presentation, I refer you to her history and physical. The patient was admitted for further evaluation and she needed to go to [facility] OR to have her laceration repaired. She was found to have an alcohol level of 234 and acknowledged drinking a bottle of wine a day but de nied ever going through withdrawal. The patient had a CT of the brain without contrast that showed no calvarial fracture or acute intracr anial hemorrhage. CT of the cervical spine without contrast showed mild multilevel degenerative mckay ges without acute fracture or dislocation of the cervical spine. Chest x-ray showed no active cardio pulmonary disease and a forearm x-ray showed soft tissue defect consistent with laceration and no fra cture. The patient was seen in consultation by orthopedist (Dr. Mak) and her impression was that the patie nt had a fall the prior evening while intoxicated. She was found to have a deep and lengthy wound al pennie the dorsal forearm with some wound edge necrosis. Her recommendation was for washing, debridemen t and closing in the operating room. Due to her newly diagnosed atrial fibrillation, the patient had a transthoracic echocardiogram performed prior to surgery and it showed an ejection fraction of 65% to 70% with a left atrium that is moderately dilated. No significant valvular abnormalities. Border line pulmonary hypertension. The patient was taken to the OR and she underwent irrigation and debrid ement with primary closure of the right forearm open wound measuring 13 x 5 cm in length and width. The patient did well after the procedure. She remained afebrile. Her atrial fibrillation rate is co ntrolled and she is asymptomatic at this time. She does have a FELICIA score of 3 and would be a candidate for anticoagulation, but at this point with her history of alcohol abuse and fall, she would be at a greater risk for bleeding. She understands the risks and benefits and her plan is to quit drinking. She was seen by bilingual social worker but she feel she would not need any kind of rehab at this time. She said that she had not realized how her drinki ng had escalated and she feels she will be ready to cut down without any other assistance. If this do es happen, then as outpatient, she could have further discussion regarding anticoagulation to decreas e her risk of embolic events. She is aware that with anticoagulation she is at higher risk of stroke , but she also acknowledges the risk of bleeding with anticoagulation if she continues to drink. This should be further discussed with her primary care provider, Dr. Foley as outpatient and if he sees f it, he could refer her to cardiology for further evaluation but at this point, the impression is that her atrial fibrillation is likely associated with her alcohol intake. The patient is medically stable for discharge at this time to complete 7 days of cephalexin as outpat ient and to follow up with Dr. Mak on 05/11 at 8:30 a.m. PHYSICAL EXAMINATION: Vital Signs: Temperature 98.1, heart rate 79, respiratory rate is 14, oxygen saturation 96% on room air, blood pressure is 148/74. General: Patient is a pleasant elderly lady, s itting up in bed, in no acute distress. CVS: Normal S1, S2. Irregularly irregular. Chest: Breath sounds bilaterally with no added sounds. Extremities: The patient has a clean dressing intact to he r right forearm. Good capillary refill. Sensation is intact. Neuro: She is alert and oriented x3. Able to move all 4 extremities. DIET: Heart healthy diet. The patient was advised to avoid caffeine. ACTIVITIES: As tolerated. DISPOSITION: To home. STATUS WHILE IN THE HOSPITAL: Observation. Please keep in mind that this is a summarized version of this patient's hospital stay. If you need m ore information, please feel free to call me at [phone] or please obtain the full medical record s. TIME SPENT: Approximately 45 minutes were spent to complete the discharge. [id number]/[facility] #: [id number]
== END 2017-05-08 11:56 | disposition home or self-care (01) ==
LOC: ED 00:57 → MEDTELE 04:29
PROVIDERS: ADMIT Pediatrics; ATTEND Internal Medicine
PROC: 0HQDXZZ Repair Right Lower Arm Skin, External Approach (ICD-10-PCS; principal; 2017-05-07 16:00)
DX: S51.811A Laceration without foreign body of right forearm, initial encounter (principal); W10.9XXA Fall (on) (from) unspecified stairs and steps, initial encounter; Y92.9 Unspecified place or not applicable; F10.129 Alcohol abuse with intoxication, unspecified; I48.91 Unspecified atrial fibrillation; I10 Essential (primary) hypertension; E78.5 Hyperlipidemia, unspecified; Z87.891 Personal history of nicotine dependence; I51.7 Cardiomegaly; Z79.899 Other long term (current) drug therapy
CPT/HCPCS: 36415; 70450; 71020; 72125; 80048; 80053; 80320; 81003; 81015; 83735; 84484; 85025; 85610; 87086; 93005; 93306; 96365; 96366; 96372; 96375; 99291; A9270-GY; C8929; G0378; G0480; J0690; J1100; J1885; J2250; J2405; J2704; J3010; J3411; J3475; J3490

== ENCOUNTER 2018-10-19 10:37 | Day surgery (SDC) | payer MEDICARE, BC ==
[~2018-10-19 10:37] MED LIST: Buffered Lidocaine 1% SYRIN* 1 ML/SYRINGE INTRADERM ONE; Bupivacaine 0.5%* 50 ML VIAL ONE; Lactated Ringers 1000 ML Bag* 1,000 ML IV SCH
[2018-10-19] MEDS ORDERED: ceFAZolin 2 GM PREMIX in ORs 2 GM/50 ML BAG IVPB ONE (10:53)
[2018-10-19] MEDS ORDERED: fentaNYL* 50 MCG/ML 2 ML VIAL (100 MCG VIAL) ONE (11:16)
[2018-10-19] MEDS ORDERED: Midazolam* 1 MG/ML 2 ML VIAL (2 MG) ONE (11:16)
[2018-10-19] MEDS ORDERED: Famotidine IV* 10 MG/ML 2 ML (20 mg) ONE (12:03)
[2018-10-19] MEDS ORDERED: ROPIVACAINE 5 MG/ML 30 ML BTL (0.5%) ONE (12:03)
[2018-10-19] MEDS ORDERED: Ondansetron INJ* 2 MG/ML VIAL ONE (12:23)
[2018-10-19] MEDS ORDERED: Lidocaine 2% PF * 5 ML VIAL ONE (12:23)
[2018-10-19] MEDS ORDERED: Ketorolac INJ* 30 MG/ML 1 ML VIAL ONE (12:23)
[2018-10-19] MEDS ORDERED: Propofol* 10 MG/ML 20 ML BTL ONE (12:23)
[2018-10-19] MEDS ORDERED: Phenylephrine 10 MG/ML VIAL* 1 ML VIAL ONE (12:37)
[2018-10-19] MEDS ORDERED: Dexamethasone IV* 4 MG/ML 1 ML (4 MG) ONE (13:06)
[2018-10-19] MEDS ORDERED: EPHEDrine (Pressors)* 50 MG/ML VIAL ONE (13:13)
[2018-10-19] MEDS ORDERED: DiMENhydriNATE IV* 50 MG/ML VIAL IV PUSH PRN (13:23)
[2018-10-19] MEDS ORDERED: Acetaminophen TAB* 325 MG PO PRN (13:23)
[2018-10-19] MEDS ORDERED: HYDROcodone/ACETAMIN 5-325 MG* 1 TAB PO PRN ×2 (13:23)
[2018-10-19] MEDS ORDERED: Ondansetron INJ* 2 MG/ML VIAL IV PRN (13:23)
[2018-10-19] MEDS ORDERED: PROCHLORPERAZINE INJ 5 MG/ML 2 ML VIAL IV PRN (13:23)
[2018-10-19] MEDS ORDERED: diPHENhydraMINE IV* 50 MG/ML 1 ml VIAL (BENADRYL) IV PRN (13:23)
[2018-10-19] MEDS ORDERED: Naloxone* 0.4 MG/ML 1 ML VIAL IV PRN (13:23)
[2018-10-19] MEDS ORDERED: fentaNYL* 50 MCG/ML 2 ML VIAL (100 MCG VIAL) IV PRN (13:23)
[2018-10-19 14:31] VITALS: BP 109/74
--- NOTE | 2018-10-19 16:46 | OP ---
DATE OF OPERATION: 10/19/18 - [facility] DATE OF : 47 SURGEON: Amelia Nuno MD ASSISTANTS: ROBER Marcos and ROBER Gambino ANESTHESIA: General and block. PRE-OP DIAGNOSIS: Comminuted distal radius fracture on the left. POST-OP DIAGNOSIS: Comminuted distal radius fracture on the left. OPERATIVE PROCEDURE: Open reduction and bridge plating of the left distal radius. ESTIMATED BLOOD LOSS: Less than 20 cc. INDICATIONS FOR PROCEDURE: Rachele is a 73-year-old female, who fell and injured her left wrist and hand. She suffered a nondisplaced fracture of her fifth metacarpal and a displaced and dislocated fracture of her distal radius, which is comminuted, intraarticular and very distal. She presents for ORIF of the distal radius. DESCRIPTION OF PROCEDURE: The patient was brought to the operating room, was given a general anesthetic after a block anesthetic and placed in a supine position on the operating table with a tourniquet around the left upper arm. The skin of her left upper extremity was prepped and draped in the usual sterile fashion. The hand and forearm were exsanguinated and the tourniquet elevated to 250 mmHg. We attempted closed reduction of the fracture, but were unable to reduce the lunate onto the radius, so a dorsal incision was made and we dissected through the fourth extensor compartment. There was a tear in the wrist joint capsule and several articular fragments blocking reduction. These were removed and then the lunate was reduced onto the radius. An incision was made over the third metacarpal and an additional one in the mid aspect of the forearm over the radius. A Synthes bridge plate was passed from distal to proximal and secured with 1 distal screw in the third metacarpal. Then, with traction across the wrist, a screw was placed in the midshaft of the radius and the position of the plate and screws was checked on the C-arm in the AP and lateral views. There was still some slight dorsal subluxation of the lunate, so an additional screw was placed in the distal radius to try to draw the radius closer to the plate and block the lunate and scaphoid from subluxing dorsally. There was no remaining dorsal rim of bone on the radius. Two additional screws were placed proximally and 2 additional screws were placed distally and then the wounds were irrigated. The extensor retinaculum was repaired with 2-0 Vicryl suture and the skin edges were reapproximated with 4-0 nylon suture. The wounds were dressed with Xeroform, 4x4, Webril, and a volar splint. The patient tolerated the procedure well and was brought to the recovery room in good condition. [id number]/[facility] #: [id number] SHYLA
== END 2018-10-19 15:07 | disposition home or self-care (01) ==
LOC: OREAST 10:37
PROVIDERS: ATTEND Orthopaedic Surgery
DX: S52.572A Other intraarticular fracture of lower end of left radius, initial encounter for closed fracture (principal); S62.357A Nondisplaced fracture of shaft of fifth metacarpal bone, left hand, initial encounter for closed fracture; G89.18 Other acute postprocedural pain; W10.9XXA Fall (on) (from) unspecified stairs and steps, initial encounter; Y92.9 Unspecified place or not applicable; I48.91 Unspecified atrial fibrillation; I10 Essential (primary) hypertension; Z68.33 Body mass index [BMI] 33.0-33.9, adult; E78.00 Pure hypercholesterolemia, unspecified; Z79.01 Long term (current) use of anticoagulants; Z87.891 Personal history of nicotine dependence
CPT/HCPCS: 76000; C1713; C1776; J0690; J1100; J1885; J2250; J2405; J2704; J2795; J3010; J3490

== ENCOUNTER 2019-02-18 08:17 | Day surgery (SDC) | payer MEDICARE, BC ==
--- NOTE | 2019-02-16 16:58 | HP ---
PREOPERATIVE HISTORY AND PHYSICAL: DATE OF ADMISSION/SURGERY: 02/18/19 - [facility] DATE OF OFFICE VISIT/ENCOUNTER: 02/02/19 ATTENDING SURGEON: Amelia Nuno MD * (DICTATED BY ROBER FOOTE) PROCEDURE: Removal of hardware, left wrist. HISTORY OF PRESENT ILLNESS: This is a 73-year-old female who, on 10/19/18, underwent an open reduction and bridge plating of a left distal radius fracture. Dr. Nuno performed this surgery. The patient now presents to have the bridge plate removed. She is on Xarelto for atrial fibrillation. We will have her plan to stop taking that 2 days prior to surgery and we will get cardiac clearance from Dr. Meneses, her front office administrator, prior to proceeding with surgery. PAST MEDICAL HISTORY: 1. Hypertension. 2. Atrial fibrillation. 3. High cholesterol. 4. History of diverticulitis. PAST SURGICAL HISTORY: 1. Open reduction and bridge plating of left distal radius. 2. Colectomy in 2007. 3. Ileostomy in 2007. 4. Hysterectomy. 5. Tonsillectomy with adenoidectomy. 6. Open reduction and internal fixation, right humerus. 7. Incision and drainage, right forearm. 8. Fistula repair. 9. Ileostomy closure. 10. Colorectal anastomosis resection. No anesthesia problems reported. CURRENT MEDICATIONS: 1. Aspirin 81 mg daily. 2. Atenolol 50 mg daily. 3. Multivitamin Complete daily. 4. Pravastatin sodium 80 mg daily. 5. Xarelto 20 mg daily. ALLERGIES: MORPHINE and CODEINE caused headaches. FAMILY MEDICAL HISTORY: Heart disease, hypertension, stroke, cancer. SOCIAL HISTORY: The patient is retired. She lives with her spouse. She is a former smoker, she quit approximately 40 years ago. Prior to that, she smoked up to a pack per day for several years. She denies recreational drug use. She drinks alcohol on occasion. REVIEW OF SYSTEMS: Negative for general, cephalic, cardiovascular, respiratory , GI, , other musculoskeletal, integumentary, endocrine, neurologic, and hematologic symptoms. Infectious Disease: Negative for MRSA, hepatitis C, HIV. PHYSICAL EXAMINATION GENERAL: A well-developed, well-nourished 73-year-old female, in no acute distress. VITAL SIGNS: Height 5 feet 2 inches, weight 171 pounds. Pulse rate 110, blood pressure 120/72. HEENT: Normocephalic, atraumatic. Pupils are equal, round, and reactive to light and accommodation. Extraocular movements are intact. Throat is clear. NECK: Supple. No palpable lymph nodes. PULMONARY: Lungs are clear to auscultation bilaterally. No wheezes, rales, or rhonchi. CARDIOVASCULAR: Irregular rate and rhythm. Normal S1, S2. No appreciable S3 or S4. No murmurs, rubs, or gallops appreciated. No edema. MUSCULOSKELETAL: On exam of her left wrist, she has mild swelling in the fingers, has fairly good motion in the fingers as well, has difficulty squeezing into a tight fist. She has a well-healed surgical scar on the volar aspect of her wrist, good motion in her elbow. Neurovascular function is intact. IMAGING STUDIES: X-rays, AP, lateral of the left wrist show the radius to be in good position and the bridge plate also to be in good position. IMPRESSION: Status post left distal radius fracture with bridge plate. PLAN: The patient is scheduled to undergo removal of hardware, left wrist, with Dr. Nuno on 02/18/19. She will return to the office 10 days postop for followup and suture removal. A prescription for Stetson was e-scribed to the patient's pharmacy for postoperative pain management. She will stop the Xarelto 2 days prior to surgery and we will get clearance from her front office administrator , Dr. Meneses, prior to proceeding with surgery. ROBER FOOTE [id number]/[facility] #: [id number] SHYLA
[~2019-02-18 08:17] MED LIST changes: -Bupivacaine 0.5%* 50 ML VIAL ONE; +Sodium Citrate/Citric Acid* 15 ML UDC PO ONE
[2019-02-18] MEDS ORDERED: Sodium Citrate/Citric Acid* 15 ML UDC ONE (08:28)
[2019-02-18] MEDS ORDERED: Buffered Lidocaine 1% SYRIN* 1 ML/SYRINGE INTRADERM ONE (08:57)
[2019-02-18] MEDS ORDERED: Bupivacaine 0.5% SDV PF* 30ML VIAL ONE (09:40)
[2019-02-18] MEDS ORDERED: Lidocaine 2% PF * 5 ML VIAL ONE (09:45)
[2019-02-18] MEDS ORDERED: Propofol* 10 MG/ML 20 ML BTL ONE (09:45)
[2019-02-18] MEDS ORDERED: fentaNYL* 50 MCG/ML 2 ML VIAL (100 MCG VIAL) ONE (09:46)
[2019-02-18] MEDS ORDERED: Acetaminophen IV 1GM/100ML * 1,000 MG/100 ML VIAL IVPB ONE (09:48)
[2019-02-18] MEDS ORDERED: fentaNYL* 50 MCG/ML 2 ML VIAL (100 MCG VIAL) IV PRN (09:48)
[2019-02-18] MEDS ORDERED: Ondansetron INJ* 2 MG/ML VIAL IV PRN (09:48)
[2019-02-18] MEDS ORDERED: Naloxone* 0.4 MG/ML 1 ML VIAL IV PRN (09:48)
[2019-02-18] MEDS ORDERED: Ketorolac INJ* 30 MG/ML 1 ML VIAL ONE (10:10)
[2019-02-18] MEDS ORDERED: EPHEDrine (Pressors)* 50 MG/ML VIAL ONE (10:47)
[2019-02-18 12:08] VITALS: BP 148/62
--- NOTE | 2019-02-18 18:30 | OP ---
DATE OF OPERATION: 02/18/19 [facility] DATE OF : 47 SURGEON: Dr. Nuno. DIVISION LEADER: ROBER Gambino ANESTHESIA: General. PRE-OP DIAGNOSIS: Status post bridge plate placement for a left distal radius fracture. POST-OP DIAGNOSIS: Status post bridge plate placement for a left distal radius fracture. OPERATIVE PROCEDURE: Plate removal, left wrist. ESTIMATED BLOOD LOSS: Zero. TOURNIQUET TIME: About 25 minutes. INDICATION FOR PROCEDURE: Rachele is a 73-year-old female who had a bridge plate placed for a severely comminuted intra-articular fracture of the distal radius. She presents now 3 months later for plate removal. DESCRIPTION OF PROCEDURE: The patient was brought to the operating room, was given a general anesthetic, and was placed in the supine position on the operating table with tourniquet around the left upper arm. Skin of the left upper extremity was prepped and draped in the usual sterile fashion. The hand and forearm were exsanguinated and tourniquet elevated to 250 mmHg. The previous scars were incised and the 7 screws were removed. The plate was then easily removed through the distal incision. The wounds were irrigated with saline and the skin edges were reapproximated with 4-0 nylon suture. The wounds were dressed with Xeroform, 4x4, Webril, and Roberto Carlos wrap. The patient tolerated the procedure well and was brought to the recovery room in good condition. [id number]/[facility] #: [id number] MTDD
== END 2019-02-18 11:53 | disposition home or self-care (01) ==
LOC: OREAST 08:17
PROVIDERS: ATTEND Orthopaedic Surgery
DX: Z47.2 Encounter for removal of internal fixation device (principal); S52.502D Unspecified fracture of the lower end of left radius, subsequent encounter for closed fracture with routine healing; X58.XXXD Exposure to other specified factors, subsequent encounter; Y92.9 Unspecified place or not applicable; I10 Essential (primary) hypertension; I48.91 Unspecified atrial fibrillation; Z79.01 Long term (current) use of anticoagulants; E78.00 Pure hypercholesterolemia, unspecified; M19.90 Unspecified osteoarthritis, unspecified site
CPT/HCPCS: 88300; A9270-GY; J1885; J2704; J3010; J3490